=== PATIENT | female | born 1980 | race Caucasian/White ===

== ENCOUNTER → 2016-06-16 | Outpatient (CLI) | payer BC ==
[~2016-06-16] MED LIST: FRRS300 PO; MULT-506 PO
[2016-06-19 02:49] LABS: CHLAMYDIA TRACH RNA*** NOT DETECTED (NOT DETECTED); GC (NEIS GONORRHOEAE)RNA** NOT DETECTED (NOT DETECTED)
== END | disposition home or self-care (01) ==
LOC: C.LABSPEC 11:55
PROVIDERS: ATTEND Obstetrics & Gynecology
DX: N94.9 Unspecified condition associated with female genital organs and menstrual cycle (principal); L29.8 Other pruritus

== ENCOUNTER → 2017-01-30 | Outpatient (CLI) | payer BC ==
[2017-01-30 16:01] LABS: HEMATOCRIT 32.8 % (37-47); MEAN CELL VOLUME 71.8 fL (80-100); MEAN CORPUSCULAR HEMOGLOBIN 20.4 pg (25-34); MEAN CORPUSCULAR HGB CONC 28.4 g/dl (32-36); MEAN PLATELET VOLUME 9.4 fL (7.4-10.4); PLATELET COUNT 247 K/uL (130-400); RED BLOOD COUNT 4.57 M/uL (4.2-5.4); WHITE BLOOD COUNT 4.25 K/uL (4.8-10.8)
== END | disposition home or self-care (01) ==
LOC: C.LAB1850 14:05
PROVIDERS: ATTEND Obstetrics & Gynecology
DX: N92.0 Excessive and frequent menstruation with regular cycle (principal)

== ENCOUNTER → 2017-03-08 | Outpatient (CLI) | payer BC | END | disposition home or self-care (01) | LOC: C.PAPS 09:23 | PROVIDERS: ATTEND Obstetrics & Gynecology | DX: Z01.419 Encounter for gynecological examination (general) (routine) without abnormal findings (principal) ==

== ENCOUNTER → 2017-03-27 | Outpatient (CLI) | payer BC ==
[~2017-03-27] MED LIST changes: +CYAN100T PO; +FERR1TAB13 PO; +MTR600X PO; +OXYC-57 PO
== END | disposition home or self-care (01) ==
LOC: C.LAB1850 15:35
PROVIDERS: ATTEND Obstetrics & Gynecology
DX: N92.0 Excessive and frequent menstruation with regular cycle (principal)

== ENCOUNTER 2017-05-05 06:58 | Observation (INO) | payer BC ==
[2017-05-03 15:16] VITALS: BMI 24.0
--- NOTE | 2017-05-03 15:31 | PAT Medication Instructions ---
Service Date May 03, 2017. Current Home Medication List Cyanocobalamin (Vitamin B-12), 100 MCG PO HS Ferrous Sulfate (Kp Ferrous Sulfate), 1 TAB PO HS Multivitamin (Multivitamin), 1 TAB PO HS Medication Instructions For Your Scheduled Surgery - Take the following medications as scheduled the night before surgery: Cyanocobalamin (Vitamin B-12), 100 MCG PO HS Ferrous Sulfate (Kp Ferrous Sulfate), 1 TAB PO HS Multivitamin (Multivitamin), 1 TAB PO HS nothing to eat or drink after midnight If you have any questions please call us at [phone] or [phone] or [phone]
[2017-05-03 16:28] LABS: BASO % 0.5 %; BASO ABS # 0.03 K/uL (0-0.2); EOS % 2.2 %; EOS ABS # 0.13 K/uL (0-0.5); HEMATOCRIT 36.5 % (37-47); HEMOGLOBIN 11.7 g/dL (12.0-16.0); IG# 0.02 K/uL (0.00-0.02); LYMPH % 29.5 %; LYMPH ABS # 1.76 K/uL (1.2-3.4); MEAN CORPUSCULAR HGB CONC 32.1 g/dl (32-36); MEAN PLATELET VOLUME 9.3 fL (7.4-10.4); MONO % 10.2 %; MONO ABS # 0.61 K/uL (0.11-0.59); NEUT % 57.3 %; NEUT ABS # 3.42 K/uL (1.4-6.5); PLATELET COUNT 234 K/uL (130-400); RED CELL DISTRIBUTION WIDTH CV 15.6 % (11.5-14.5); RED CELL DISTRIBUTION WIDTH SD 44.1 fL (36.4-46.3); WHITE BLOOD COUNT 5.97 K/uL (4.8-10.8)
[2017-05-03 16:42] LABS: CALCIUM 8.6 mg/dl (8.5-10.1); CREATININE 0.79 mg/dl (0.60-1.20); POTASSIUM 3.5 mmol/L (3.5-5.1)
[~2017-05-05] VITALS: Ht 165.1 cm; Wt 65.9 kg
[2017-05-05] VITALS (9 sets, daily range): BP systolic 109–133; BP diastolic 69–83; PULSE 63–85; TEMP 36.8–37.1; O2SAT 95–100; Ht 165.1 cm; Wt 65.9 kg
[~2017-05-05 06:58] MED LIST changes: +CEFAZOLIN 2000MG IV PUSH 10 ML IV SCH; -FRRS300 PO; +LACTATED RINGER'S 1000ML 1,000 ML IV SCH; -MTR600X PO; -OXYC-57 PO
[2017-05-05] MEDS ORDERED: PROMETHAZINE HCL INJ 12.5 MG in SODIUM CHLORIDE 0.9% 50ML 50 ML IV PRN ×2 (07:15→12:30)
[2017-05-05] MEDS ORDERED: FENTANYL CITRATE INJ 50 MCG/1 ML 2 ML VIAL IV PRN (07:15)
[2017-05-05] MEDS ORDERED: HYDROmorphone INJ 1 MG/ML SYR IV PRN (07:15)
[2017-05-05] MEDS ORDERED: ATROPINE SULFATE 0.1 MG/ML 5ML SYR IV PRN (07:15)
[2017-05-05] MEDS ORDERED: ONDANSETRON INJ 2 MG/ML 2 ML VIAL IV PRN ×2 (07:15→12:30)
[2017-05-05] MEDS ORDERED: EpHEDrine SULFATE INJ 50 MG/ML AMP IV PRN (07:15)
--- NOTE | 2017-05-05 09:57 | History & Physical Bridge Note ---
H&P Re-Evaluation Bridge Note: I have examined the patient, reviewed the History & Physical and in the interval since the performance of the History & Physical I have noted the following changes of clinical significance: No changes noted
[2017-05-05] MEDS ORDERED: BUPIVACAINE 0.5 % 5 MG/1 ML MPF 30ML VIAL ONE (10:13)
[2017-05-05] MEDS ORDERED: METHYLENE BLUE 0.5% 10 ML VIAL ONE (10:13)
[2017-05-05] MEDS ORDERED: MIDAZOLAM HCL 1 MG/ML 2ML VIAL ONE (10:17)
[2017-05-05] MEDS ORDERED: ONDANSETRON INJ 2 MG/ML 2 ML VIAL ONE (10:18)
[2017-05-05] MEDS ORDERED: SODIUM CHLORIDE 0.9% INJ 10 ML VIAL ONE (10:18)
[2017-05-05] MEDS ORDERED: HYDROmorphone INJ 2 MG/ML SYR/VIAL ONE (10:18)
[2017-05-05] MEDS ORDERED: DEXAMETHASONE SOD INJ 4 MG/ML VIAL ONE (10:18)
[2017-05-05] MEDS ORDERED: FENTANYL CITRATE INJ 50 MCG/1 ML 2 ML VIAL ONE ×2 (10:18→12:52)
[2017-05-05] MEDS ORDERED: PROPOFOL IV EMULSION 10 MG/ML 20 ML VIAL IV ONE (10:18)
[2017-05-05] MEDS ORDERED: GLYCOPYRROLATE INJ 0.2 MG/ML VIAL ONE (11:40)
[2017-05-05] MEDS ORDERED: NEOSTIGMINE METHYLSULFATE 5 MG/5 ML SYR ONE (11:40)
[2017-05-05] MEDS ORDERED: TISSEEL FIBRIN SEALANT 4ML TOP ONE (12:04)
[2017-05-05] MEDS ORDERED: ROCURONIUM BROMIDE 10 MG/ML 5 ML VIAL IV ONE (12:11)
--- NOTE | 2017-05-05 12:28 | [facility] Post Operative Brief Note ---
Immediate Operative Summary Operative Date May 05, 2017. Pre-Operative Diagnosis Menorrhagia, moderate cervical dysplasia, anemia. Post-Operative Diagnosis Same as preop. Procedure(s) Performed Total Laparoscopic Hysterectomy, Bilateral Salpingectomy, Cystoscopy resection of endometriosis [place] Surgeon Dr. Orr Dry House Worker Surgeon(s) Dr. Payton Estimated Blood Loss 50 mL Findings endometriosis Specimens A: Left uretero-sacral ligament B: Uterus, cervix, bilateral fallopian tubes Drains Pearson Anesthesia general Complication(s) None Disposition Recovery Room / PACU
[2017-05-05] MEDS ORDERED: MTR600X PO (12:29)
[2017-05-05] MEDS ORDERED: OXYC-57 PO (12:29)
--- NOTE | 2017-05-05 12:29 | Discharge Instructions ---
Discharge Instructions Date of Service May 05, 2017. Admission Reason for Admission: Menorrhagia, Anemia Discharge Discharge Diagnosis / Problem: menorrhagia Discharge Goals Goal(s): Routine recovery after surgery Activity Recommendations Activity Limitations: per Instructions/Follow-up section . Instructions / Follow-Up Instructions / Follow-Up POST OPERATIVE: BOWEL FUNCTION/MEDICATIONS: 1. Constipation pain and discomfort are the most common complaints 5-7 days after surgery. Points 2-6 address the things that can help. 2. Chewing gum can help stimulate the gut and help improve digestion and motility. 3. Milk of Magnesia 1-2 times per day until return of bowel function. 4. Colace is a stool softener that helps. Taking this 2-3 times per day until bowel function returns to normal is highly recommended. 5. Dulcolax is a laxative that may be used if several days have passed without a bowel movement. Alternatively Miralax may be used daily instead. 6. Drink plenty of fluids as this will also reduce constipation. 7. Narcotic pain medications will be prescribed by your physician. They are safe to use and we encourage you to use them. If you are not allergic, ibuprofen will also be prescribed. Many patients will be able to transition off of the narcotic medications to ibuprofen by postoperative day 3. ACTIVITY RECOMMENDATIONS: 1. Get plenty of rest and listen to your body. If you are tired, take a nap. 2. You may shower, but do not take a tub bath until you see your doctor at the 2 week post operative visit. 3. Absolutely NO intercourse and nothing in the vagina until you are examined by your doctor at the 6 week visit. At that visit it will be determined when such activities can be resumed. This can range from 6-12 weeks after your surgery depending on healing time. 4. The main physical activity in the first week should be walking. By the second week you can slowly increase activity. There are no limits on walking up and down stairs. 5. Do not lift more than 5-10 lbs for 4 weeks. Remember the "one-handed rule", i.e. if you can lift something with only one hand it's likely okay. 6. Minimize prior authorization technician like vacuuming and exercising for 4 weeks. "Overdoing it" can lead to incisions not healing, pain and vaginal bleeding , so again, listen to your body. 7. Driving can be resumed when you feel able. Do not drive within 24 hours of taking a narcotic medication. EXPECTATIONS: 1. Vaginal spotting, bleeding and discharge are common after surgery. There may even be an odor to the discharge which is often related to sutures used in the vagina. If you experience heavy vaginal bleeding, call the office number day or night [phone]. 2. Bladder discomfort is common after surgery from the catheter. This usually resolves in 1-2 weeks. 3. By the end of the 3rd or 4th week you should be feeling much better. It may take up to 6 weeks for your energy levels to return to normal. 4. Narcotic medications have side effects such as: dizziness, headache, nausea and/or vomiting. If you suspect your pain medication is causing problems, call our office and we may be able to prescribe an alternate medication. 5. The skin incisions are often covered with a liquid bandage. This will gradually peel off over time. CALL THE OFFICE IF YOU HAVE ANY OF THE FOLLOWIN. Temperature of 101 degrees or higher. 2. Severe abdominal or pelvic pain not relieved by pain medication. 3. Persistent nausea or vomiting. 4. Increased pain with urination or difficulty urinating. 5. Bright red bleeding that soaks more than 1 pad per hour. CONTACT PHONE NUMBERS: Main Office: [phone] Surgical Nurse: [phone] extension [phone] Avoid all tobacco products. If you need help to stop smoking, call [place]'s FREE QUITLINE at . This is a free call. Current Hospital Diet Patient's current hospital diet: Discharge Diet Recommended Diet: Regular Diet Procedures Procedures Performed: Total Laparoscopic Hysterectomy, Bilateral Salpingectomy, Cystoscopy resection of endometriosis DaVinci Pending Studies Studies pending at discharge: no Medical Emergencies . Who to Call and When: Medical Emergencies: If at any time you feel your situation is an emergency, please call 911 immediately. . Non-Emergent Contact Non-Emergency issues call your: Informatics Educator . . "Provider Documentation" section prepared by Suresh Orr. . VTE Core Measure Inpt VTE Proph given/why not?: Nicol Almonte, FLORIDALMA's
[2017-05-05] MEDS ORDERED: KETOROLAC TROMETHAMINE 30 MG/ML VIAL IV. PRN (12:30)
[2017-05-05] MEDS ORDERED: ACETAMINOPHEN 325 MG TAB PO PRN (12:30)
[2017-05-05] MEDS ORDERED: SIMETHICONE 80 MG CHEW PO PRN (12:30)
[2017-05-05] MEDS ORDERED: MEPERIDINE HCL 50 MG/ML CARP IV PRN ×2 (12:30)
[2017-05-05] MEDS ORDERED: ZOLPIDEM TARTRATE 5 MG TAB PO PRN (12:30)
[2017-05-05] MEDS ORDERED: MAGNESIUM HYDROXIDE SUSP 30 ML UDC PO PRN (12:30)
[2017-05-05] MEDS ORDERED: PROMETHAZINE HCL INJ 25 MG in SODIUM CHLORIDE 0.9% 50ML 50 ML IV PRN (12:30)
[2017-05-05] MEDS ORDERED: BISACODYL 10 MG SUPP PR PRN (12:30)
[2017-05-05] MEDS ORDERED: OXYCODONE/ACETAMINOPHEN 5-325 TAB PO PRN ×2 (12:30)
[2017-05-05] MEDS ORDERED: IV FLUIDS COMPLETED PRN (13:00)
--- NOTE | 2017-05-05 13:09 | Anesthesiology Progress Note ---
Anesthesia Post Op Note Date & Time May 05, 2017 at 13:09 Vital Signs Pain Intensity: 2.0 Vital Signs Past 12 Hours Date Time Temp Pulse Resp B/P (MAP) Pulse Ox O2 Delivery O2 Flow Rate FiO2 05/05/17 13:00 36.3 65 18 137/89 98 Room Air 05/05/17 12:50 86 18 141/94 100 Room Air 05/05/17 12:40 78 18 145/93 100 Oxymask 5 05/05/17 12:34 36.0 78 12 143/88 100 Oxymask 5 05/05/17 07:47 37.1 63 18 130/80 (97) 100 Room Air Notes Mental Status: alert / awake / arousable, participated in evaluation Pt Amnestic to Procedure: Yes Nausea / Vomiting: adequately controlled Pain: adequately controlled Airway Patency, RR, SpO2: stable & adequate BP & HR: stable & adequate Hydration State: stable & adequate Anesthetic Complications: no major complications apparent
[2017-05-05] MEDS ORDERED: KETAMINE HCL INJ 50 MG/ML 10 ML VIAL ONE (13:22)
--- NOTE | 2017-05-05 13:25 | NUR ---
A: Patient arrived to unit at 1325 in hospital bed. Oriented to room and call knight system. supportive and arrived with patient. LR infusing at 125 ml/hr into left wrist. Pearson catheter intact with blue urine present in tubing. Patient given po fluids; not taking sips of as of yet. Patient reports mild abdominal pain that she declines pain medication for. Lap incisions x4 over abdomen; well approximated, slightly bruised with dermabond intact. Patient very groggy and drowsy. Reports feeling the room spin when she tries to stay awake. Requesting to sleep. Reviewed mario but patient is not ready to attempt.
--- NOTE | 2017-05-05 13:46 | OPERATIVE REPORT ---
DATE OF OPERATION: 05/05/2017 PREOPERATIVE DIAGNOSIS: Menorrhagia, moderate cervical dysplasia, anemia, endometriosis. POSTOPERATIVE DIAGNOSIS: Same. PROCEDURE: Total laparoscopic hysterectomy, bilateral salpingectomy, cystoscopy and resection of endometriosis di [place] robotically assisted. SURGEON: Dr. Orr. SPECIAL EDUCATION SUPERVISOR: Dr. Payton. ESTIMATED BLOOD LOSS: 50 mL. FINDINGS: Endometriosis. SPECIMENS: Uterus, cervix, bilateral fallopian tubes and left uterosacral ligament resection of endometriosis. DRAINS: Pearson. ANESTHETIC: General. COMPLICATIONS: None. DISPOSITION: Recovery room. DESCRIPTION OF PROCEDURE: The patient was given a general anesthetic, prepped and draped in dorsal lithotomy position in [facility], preop antibiotics given. The procedure was begun by draining her bladder with Pearson catheter and VCare sewn into her cervix. Gloves changed and a supraumbilical incision made with scalpel. Using Carmella technique, we did a cut down through subcutaneous fat to the fascia, splitting the rectus muscles and entering the peritoneal cavity without difficulty. Blunt-tipped Carmella trocar placed. Balloon inflated and the trocar to allow stabilization in the port. The CO2 gas used to insufflate and 10 mm laparoscope introduced. FINDINGS: Upper abdomen normal. After deep Trendelenburg position obtained uterus appeared normal, slightly enlarged. Adnexa appeared normal. There was an endometriotic lesion on the cul-de-sac near the left uterosacral ligament and otherwise normal. Ureters followed normal courses. Robot was docked first by placing 2 robotic ports, 1 on the right, 1 on the the left and a left accessory port in left upper quadrant. Arm #1 was monopolar delilah, arm #2 was bipolar [place]. The procedure was begun by using the VCare to manipulate the uterus, fallopian tubes were resected on each side as was the endometriosis lesion which was carefully resected away and sent off separately. Ureter identified on the left side. We then coagulated the blood supply distal to the left ovary with the bipolar [place] and cut with monopolar delilah. Same process with the round ligament. Uterine vessels skeletonized on the left side. Bladder flap sharply dissected away and then uterine vessels coagulated with the bipolar [place] staying well away from the left ureter. These were then cut. The vessels were then cut with monopolar delilah. The exact same process continued on the right side. Once the bladder flap was fully dissected away, we made a colpotomy anteriorly and stayed medial of our uterine vessel ligations until the colpotomy completely the uterus and cervix from the vagina. At this stage, uterus was pulled into the vagina for pneumoperitoneum. After instrument exchange, arm #1 became the kemi needle stake driver, arm #2 became the cobra grasper. The cuff was closed from left to right starting in the left corner, taking at least 1 cm full thickness vaginal mucosa bites. Suture was cut so there was no tail. Needle removed from the accessory port. At this stage, hemostasis was excellent. We did irrigate and suction as well. We did apply Tisseel to the area 4 mL for hemostasis. Cystoscopy then performed by removing the Pearson catheter. Bladder appeared normal, no sign of damage or sutures. Good strong jets of bluish green dye from the left and right ureter openings. Cystoscope removed and a new Pearson catheter placed. At this stage, we then undocked the robot. Gas allowed to escape after ports removed. Fascia closed with 0 Vicryl in the umbilicus and the left upper quadrant incision, subcuticular 4-0 Monocryl closures and Dermabond. At the end of procedure, I did inspect vaginally. There was a minimal area of lack of hemostasis, so a reinforcing [id number] was placed on the cuff vaginally of UR-6 0 Vicryl. This improved hemostasis significantly and urine was still clear. Sponge and instrument counts correct. The patient sent to recovery room in stable condition. I attest to the content of the Intraoperative Record and any orders documented therein. Any exception s are noted below.
[2017-05-05] MEDS ORDERED: LACTATED RINGER'S 1000ML 1,000 ML IV SCH ×2 (15:00→15:30)
--- NOTE | 2017-05-05 15:15 | NUR ---
OBS: Dr. Orr notified of minimal urine output- 25 ml over 1.5 hours (since arrival to floor). Aware that patient has only taken a few sips of po fluids. Aware that patient feels dizzy while trying to focus and have conversation. To keep camp catheter in until adequate urine output and tolerating po fluids well per MD. To give 1 liter LR IV bolus per MD. MD notified that and patient would like to speak with him regarding how the surgery went. MD plans to see patient.
[2017-05-05] MEDS ORDERED: NURSING VERBAL MED ORDER ONE (15:30)
--- NOTE | 2017-05-05 16:59 | NUR ---
1700, patient's urine output was noted to be 200cc at 1600. Dr. Orr aware. Patient requested heplock rt. forearm be removed since left forearm IV WNL and currently running. Patient eating crackers and have sips of fluids. Patient c/o pain level 5, see assessment.
--- NOTE | 2017-05-05 17:40 | NUR ---
OBS: Observed urine output greater than 400cc after giving bolus LR as ordered. Patient is eating and drinking fluids. Patient's pain manageable with po pain meds. Left IV saline locked at 1740. Compliant with SCD's.
--- NOTE | 2017-05-05 18:09 | NUR ---
1805 Assisted patient to stand side of bed. Her legs were slightly weak and buckled a bit. Patient sat back down on bed and said she would like to try again in another hour or two. This nurse place patient safely back in her bed, pulse ox on, cleared her SCD's and did her I&O's. At this time did not take out camp because at this very point in time, patient not comfortable walking to bathroom. Patient did 1750 of her incentive spirometer X4.
--- NOTE | 2017-05-05 19:54 | NUR ---
OBS NOTE: Pt resting in bed at this time. Continues to c/o lightheadedness and feeling 'woozy' Encouraged pt to attempt ambulation again soon. Pearson remains intact because pt has been unable to get out of bed post op. Pt is saline locked in left hand. No s/s of IV related complications. Requesting SCDs off at this time. Wearing TEDS. Provided with Thermacare for cramping. See interventions for full assessment. Bed locked and in lowest position. Side rails upx2. Call knight within reach. Hourly rounding maintained.
[2017-05-05] MEDS: DOCUSATE SODIUM 100 MG CAP PO SCH (20:22)
[2017-05-05] MEDS: IBUPROFEN 600 MG TAB PO PRN (20:23)
[2017-05-05 20:57] LABS: HEMATOCRIT 34.4 % (37-47)
--- NOTE | 2017-05-05 21:15 | NUR ---
A NOTE: Pt dangled at side of bed independently with guard assist. Pt c/o light headedness and dizziness. Sat at side of bed for about 1 minute and requested to lie back down. States "It's really bad." Returned pt to bed. Applied bilateral SCDs. Call knight within reach.
--- NOTE | 2017-05-05 23:15 | NUR ---
OBS: Patient resting at this time. Patient rates pain 3/10 at this time. VSS. Plan is to d/c camp catheter at 0600. Pt saline locked, tolerating PO, and having adequate output. Will continue to monitor. Call Harper within reach.
[2017-05-06] MEDS: IBUPROFEN 600 MG TAB PO PRN ×2 (02:33→07:43)
[2017-05-06 03:20] VITALS: BP 108/69; PULSE 63; TEMP 37.1; O2SAT 98
--- NOTE | 2017-05-06 03:20 | NUR ---
OBS: Pt resting in bed at this time. Pt recently medicated with motrin. Pt now rating pain 4/10 and is comfortable with that. Pt refuses percocet at this time. Pt has no other c/o at this time. VSS. Pearson catheter to be d/c'd at 0600. Pt saline locked. Will continue to monitor. Call knight within reach.
[2017-05-06] MEDS ORDERED: COUGH DROP (SUGAR FREE) LOZ 24 LOZ/1 BOX ONE (06:30)
--- NOTE | 2017-05-06 06:55 | Progress Note ---
Progress Note Date of Service May 06, 2017. Progress Note Postop day #1 from a total laparoscopic hysterectomy. Subjective patient doing well ambulating tolerating oral diet minimal bleeding no extremity pain. Physical exam vital signs stable afebrile chest exam clear abdominal exam soft benign bowel sounds positive incisions clear clean and intact extremity exam negative. Impression plan hemoglobin 11 discharged home on Percocet and Motrin discharge instructions reviewed
[2017-05-06] MEDS: DOCUSATE SODIUM 100 MG CAP PO SCH (07:42)
--- NOTE | 2017-05-06 07:45 | NUR ---
Patient resting in bed. Alert and oriented. Vitals stable. Reports pain a 3/10 at operative site. 4 lap sites noted on abdomen. Patient hopeful for discharge today. No needs voiced at this time. Call knight within reach. Will continue to monitor.
[2017-05-06 07:50] VITALS: BP 128/81; PULSE 75; TEMP 37.3; O2SAT 99
[2017-05-06 07:53] LABS: BASO % 0.1 %; BASO ABS # 0.01 K/uL (0-0.2); EOS % 0.6 %; EOS ABS # 0.05 K/uL (0-0.5); HEMATOCRIT 34.4 % (37-47); HEMOGLOBIN 10.6 g/dL (12.0-16.0); IG# 0.02 K/uL (0.00-0.02); LYMPH % 19.6 %; MEAN CELL VOLUME 78.4 fL (80-100); MEAN CORPUSCULAR HEMOGLOBIN 24.1 pg (25-34); MEAN CORPUSCULAR HGB CONC 30.8 g/dl (32-36); MEAN PLATELET VOLUME 8.8 fL (7.4-10.4); MONO % 7.8 %; MONO ABS # 0.68 K/uL (0.11-0.59); NEUT % 71.7 %; NEUT ABS # 6.22 K/uL (1.4-6.5); PLATELET COUNT 209 K/uL (130-400); RED CELL DISTRIBUTION WIDTH CV 14.9 % (11.5-14.5); RED CELL DISTRIBUTION WIDTH SD 42.8 fL (36.4-46.3); WHITE BLOOD COUNT 8.68 K/uL (4.8-10.8)
--- NOTE | 2017-05-06 08:30 | NUR ---
Patient up to bathroom and voided without difficulty. Ambulated [address] without difficulty.
[2017-05-06 09:01] VITALS: BP 128/81; PULSE 75; TEMP 37.3; O2SAT 99
--- NOTE | 2017-05-06 09:30 | NUR ---
Discharge instructions given. Patient verbalizes understanding. Left floor via wheelchair with and volunteer.
--- NOTE | 2017-05-09 09:24 | DISCHARGE SUMMARY ---
Max had a laparoscopic hysterectomy on 05/05/2017. The procedure was uncomplicated and her course in hospital was uncomplicated. By postop day #1, she met discharge criteria. SUBJECTIVE: The patient was ambulating, tolerating an oral diet, pain was well controlled orally with medication. She had no extremity pain. She had minimal bleeding and was passing flatus and urinating normally. PHYSICAL EXAMINATION: VITAL SIGNS: Stable. She was afebrile. CHEST EXAMINATION: Clear. CARDIOVASCULAR EXAMINATION: Normal rate and rhythm. No audible murmur. ABDOMINAL EXAMINATION: Benign. Bowel sounds positive, nontender, nondistended. EXTREMITY EXAMINATION: Negative. IMPRESSION AND PLAN: Postop day #1 from hysterectomy. Hemoglobin 10.6. Given discharge instructions and these were reviewed. Prescriptions for pain medication including 30 Percocet given.
--- NOTE | 2017-05-12 08:24 | DISCHARGE SUMMARY ---
Max had a total laparoscopic hysterectomy on 05/05/2017. Operative note is in the system. The procedure was uncomplicated. COURSE IN HOSPITAL: Max was discharged on postop day #1 doing well. SUBJECTIVE: The patient was ambulating, passing flatus, voiding, had no vaginal bleeding, no extremity pain. Pain was well controlled and tolerating an oral diet. PHYSICAL EXAMINATION: VITAL SIGNS: Stable. She was afebrile. CHEST EXAMINATION: Clear. CARDIOVASCULAR EXAMINATION: Normal rate and rhythm. ABDOMINAL EXAMINATION: Benign. Bowel sounds positive. She is not distended. Incision was clean, dry and intact. EXTREMITY EXAMINATION: Negative. IMPRESSION AND PLAN: Postop day #1 discharged home with discharge instructions. Percocet and Motrin. Given advice on how to follow up in the office.
== END 2017-05-06 09:30 | disposition home or self-care (01) ==
LOC: C.ACU 06:58 → C.MS4N 07:40 → ENRESERV 13:08
PROVIDERS: ADMIT Obstetrics & Gynecology; ATTEND Obstetrics & Gynecology
DX: N92.0 Excessive and frequent menstruation with regular cycle (principal); N87.1 Moderate cervical dysplasia; D64.9 Anemia, unspecified; Z82.49 Family history of ischemic heart disease and other diseases of the circulatory system; Z83.3 Family history of diabetes mellitus; Z80.3 Family history of malignant neoplasm of breast; N80.9 Endometriosis, unspecified
CPT/HCPCS: 58571; S2900